=== PATIENT | female | born 1965 | race African-American/Black ===

== ENCOUNTER 2017-12-17 15:43 | Emergency (ER) | payer MEDICARE, OTHER ==
[~2017-12-17] VITALS: Ht 167.6 cm; Wt 84.0 kg
[2017-12-17 15:57] VITALS: BP 152/84
== END 2017-12-17 18:18 | disposition home or self-care (01) ==
LOC: ER 17:19
DX: R09.81 Nasal congestion (principal); I10 Essential (primary) hypertension
CPT/HCPCS: 99282

== ENCOUNTER 2018-04-26 06:18 | Emergency (ER) | payer MEDICARE, OTHER ==
[~2018-04-26] VITALS: Ht 162.6 cm; Wt 74.0 kg
[2018-04-26] MEDS ORDERED: SODIUM CHLORIDE 0.9% 1,000 ML IV ONE (06:39)
[2018-04-26 07:44] LABS: BASOPHILS % 1.2 % (0.0-2.0); HEMOGLOBIN. 11.8 g/dL (12.0-16.0); LYMPHOCYTES % 27.5 % (20.0-50.0); MEAN CORPUSCULAR HEMOGLOBIN 29.2 pg (28.0-32.0); MEAN CORPUSCULAR VOLUME 86.3 fL (81.0-99.0); MEAN PLATELET VOLUME 7.6 fl (7.4-10.4); MONOCYTES % 7.9 % (2.0-8.0); NEUTROPHILS % 60.4 % (40.0-76.0); PLATELET 220 x1000/uL (130-400); RED BLOOD CELL COUNT 4.05 mill/uL (4.2-5.4); RED CELL DISTRIBUTION WIDTH 13.3 % (11.6-14.6)
[2018-04-26 07:50] LABS: CHLORIDE 103 mEq/L (98-107)
[2018-04-26 08:14] LABS: B-HCG QUANTITATIVE < 1 mIU/mL (<3)
[2018-04-26 09:16] VITALS: BP 137/84
[2018-04-26 09:30] LABS: PROTHROMBIN TIME 10.2 sec (9.1-11.1)
== END 2018-04-26 09:00 | disposition home or self-care (01) ==
LOC: ER 06:18
DX: N93.8 Other specified abnormal uterine and vaginal bleeding (principal); D21.9 Benign neoplasm of connective and other soft tissue, unspecified; D64.9 Anemia, unspecified; E87.6 Hypokalemia; R10.30 Lower abdominal pain, unspecified; Z88.0 Allergy status to penicillin
CPT/HCPCS: 36415; 71045; 76830; 76856; 80053; 81025; 83880; 84702; 85025; 85610; 85730; 86850; 86900; 86901; 93005; 99284; J7030

== ENCOUNTER 2020-02-25 10:32 | Emergency (ER) | payer MEDICARE, OTHER ==
[~2020-02-25] VITALS: Ht 167.6 cm; Wt 67.0 kg
[2020-02-25] MEDS ORDERED: MECLIZINE 25MG TABLET PO ONE (11:15)
[2020-02-25] MEDS ORDERED: SODIUM CHLORIDE 0.9% 500 ML IV ONE (11:15)
[2020-02-25 11:44] LABS: BASOPHILS % 0.9 % (0.0-2.0); EOSINOPHILS % 1.3 % (0.0-5.0); HEMATOCRIT. 32.6 % (36.0-48.0); HEMOGLOBIN. 11.3 g/dL (12.0-16.0); LYMPHOCYTES % 25.9 % (20.0-50.0); MEAN CORPUSCULAR HEMOGLOBIN 28.9 pg (28.0-32.0); MEAN CORPUSCULAR VOLUME 83.2 fL (81.0-99.0); MEAN PLATELET VOLUME 7.6 fl (7.4-10.4); NEUTROPHILS % 63.9 % (40.0-76.0); PLATELET 242 x1000/uL (130-400); RED BLOOD CELL COUNT 3.92 mill/uL (4.2-5.4); RED CELL DISTRIBUTION WIDTH 13.4 % (11.6-14.6)
[2020-02-25 11:56] LABS: CHLORIDE 101 mEq/L (98-107)
[2020-02-25 12:16] LABS: CLARITY URINE CLOUDY (CLEAR); COLOR URINE YELLOW (YELLOW); KETONES URINE NEGATIVE (NEGATIVE); LEUKOCYTE ESTERASE URINE 3+ (NEGATIVE); NITRITE URINE NEGATIVE (NEGATIVE); OCCULT BLOOD URINE 2+ (NEGATIVE); PH URINE 6.5 (4.5-8.0); PROTEIN URINE NEGATIVE (NEGATIVE); SPECIFIC GRAVITY URINE 1.012 (1.005-1.030); UROBILINOGEN URINE 0.2 E.U./dL (0.2-1.0)
[2020-02-25 12:24] LABS: HCG SCREEN NEGATIVE
[2020-02-25 15:39] VITALS: BP 128/69
== END 2020-02-25 15:41 | disposition home or self-care (01) ==
LOC: ER 10:44
DX: E87.6 Hypokalemia (principal); N39.0 Urinary tract infection, site not specified; R42 Dizziness and giddiness; M02.30 Reiter's disease, unspecified site; Z88.0 Allergy status to penicillin; Z88.2 Allergy status to sulfonamides
CPT/HCPCS: 36415; 70450; 80053; 81003; 84484; 84703; 85025; 93005; 96360; 99285; J7040; J8597